=== PATIENT | male | born 1980 | race Two or more races ===

== ENCOUNTER 2019-11-24 05:53 | Day surgery (SDC) | payer OTHER ==
[2019-11-24] MEDS ORDERED: PERCOCET 5-3251 EACH PO (10:53)
[2019-11-24] MEDS ORDERED: KETO10TA2 PO (10:54)
== END 2019-11-24 13:40 | disposition home or self-care (01) ==
LOC: CIR.AMB 05:53 → ADM 07:45 → CIR.AMB 07:45
PROVIDERS: ATTEND Surgery
DX: K60.3 Anal fistula (principal)